=== PATIENT | female | born 1940 | race Caucasian/White ===

== ENCOUNTER 2016-11-01 05:53 | Day surgery (SDC) | payer OTHER ==
[~2016-11-01] VITALS: Ht 160 cm; Wt 60.0 kg
[~2016-11-01 05:53] MED LIST: ASPI-94 PO; DYAZ37.52 PO; LORTA5 PO; QUIN10TA15 PO; SIMV20 PO
[2016-11-01 06:41] VITALS: BP 145/80; PULSE 68; RESP 20; TEMP 97.8; O2SAT 92
[2016-11-01] MEDS ORDERED: ASPI1TAB69 PO (06:56)
[2016-11-01] MEDS ORDERED: TRIA37.5 PO (06:56)
[2016-11-01] MEDS ORDERED: QUIN1TAB11 PO (06:56)
[2016-11-01] MEDS ORDERED: VANCOMYCIN 1000 MG/NS 250 ML - implanted port/tunneled catheter IV SCH ×2 (07:00)
[2016-11-01] MEDS ORDERED: SODIUM CHLORIDE 0.9% 1000 ML IV SCH (07:00)
[2016-11-01 07:19] LABS: APTT (PATIENT) 26.2 SEC (24.3-30.1); PROTHROMBIN TIME - PATIENT 10.6 SEC (9.8-11.6)
[2016-11-01] MEDS ORDERED: fentaNYL CITRATE 250 MCG/5 ML AMP ONE (08:02)
[2016-11-01] MEDS ORDERED: MIDAZOLAM HCL 5 MG/5 ML VIAL ONE (08:02)
[2016-11-01] MEDS ORDERED: LIDOCAINE 1%/EPINEPHrine 1:100,000 SOLN 20 ML VIAL ONE (08:13)
--- NOTE | 2016-11-01 08:42 | PD.RAD ---
Post Procedure Progress Note Pre Procedure Diagnosis: (1) Cancer of sigmoid colon Post Procedure Diagnosis: (1) Cancer of sigmoid colon Procedure Date: Nov 01, 2016 Supervising Radiologist: Zhang Lam JR Proceduralist/Assist: RT Amari(R)() Anesthesia: Conscious Sedation Plan of Activity Patient to Unit: ROPU Patient Condition: Good See PACS Report for procedural detail/treatment Central Venous Access Device Procedure 1 Right Internal Jugular Infusaport Removal single lumen Upper Sorbian: 8 Findings: No signs of infection. Port removed without difficulty Plan F/U with IR or a physician in 10-14 days for a site check Jr. Genaro,Zhang Gamez MD Nov 01, 2016 08:42
[2016-11-01 08:45] VITALS: BP_SYST 108; BP_SYST 94; BP_DIAS 56; BP_DIAS 63; PULSE 69; PULSE 72; RESP 18; RESP 20; TEMP 97.5; O2SAT 91; O2SAT 97
[2016-11-01 09:00] VITALS: BP 108/63; PULSE 72; RESP 18; O2SAT 97
[2016-11-01 09:30] VITALS: BP 95/60; PULSE 66; RESP 16; O2SAT 92
[2016-11-01 10:00] VITALS: BP 93/50; PULSE 60; RESP 16; O2SAT 96
[2016-11-01 10:30] VITALS: BP 106/54; PULSE 63; RESP 16; O2SAT 98
--- NOTE | 2016-11-01 12:44 | RADRPT ---
EXAM DATE/TIME: 11/01/2016 07:34 [facility] COMPARISON: No previous studies available for comparison. INDICATIONS : Patient with a history of colon cancer, port no longer needed. MEDICAL HISTORY : Colon cancer HTN High cholesterol Scoliosis Arthritis SURGICAL HISTORY : Colectomy Colonoscopy Rt. hip surgery Partial hysterectomy Tubal ligation Tonsillectomy ENCOUNTER: Subsequent ACUITY: 7-11 months PAIN SCORE: 0/10 SEDATION TIME: 30 minutes 1.) 2 mg midazolam (Versed) IV 2.) 100 mcg fentanyl (Sublimaze) IV Prophylactic antibiotics were administered with appropriate pre-procedure timing. Vancomycin within 2 hrs of procedure, Ancef (or alternative) within 1 hr of procedure. PROCEDURE : 1. Removal of [id number]. 2. Conscious sedation with continuous EKG and oximetry monitoring. The risk, benefits and potential complications of Iaqlty-u-[id number] removal were discussed. Written conse nt was obtained. The patient was placed supine. The chest wall was prepped in sterile fashion. Full sterile techniqu e was used, including cap, mask, sterile gloves and gown, and a large sterile sheet. Hand hygiene an d 2% chlorhexidine and/or Betadine/alcohol prep was utilized per protocol for cutaneous antisepsis. The skin and subcutaneous tissues were infiltrated with local anesthetic solution. A small incision w as made, the subcutaneous pocket was opened. The port was dissected from the subcutaneous tissues and easily removed in one piece. The pocket incision was closed with subcuticular Vicryl suture. Steri -Strips were applied. Conscious sedation was performed with the prescribed dosages and duration as above. The patient tole rated the procedure well and there were no complications. EKG and oximetry remained stable throughou t the procedure. The patient was sent to post anesthesia recovery in stable condition. CONCLUSION: Uncomplicated right chest port removal as above. Zhang Lam Jr., MD on November 01, 2016 at 12:42 Board Certified Radiologist. This report was verified electronically.
== END 2016-11-01 10:45 | disposition home or self-care (01) ==
LOC: HROP 05:53 → HRIP 05:54 → HROP 10:45
PROVIDERS: ATTEND Internal Medicine Hematology & Oncology
DX: C18.7 Malignant neoplasm of sigmoid colon (principal); Z79.82 Long term (current) use of aspirin
CPT/HCPCS: 36590; 85610; 85730; 99152; 99153; J2250; J3010; J3370; J7030; J7050

== ENCOUNTER 2017-12-05 06:04 | Day surgery (SDC) | payer OTHER ==
[~2017-12-05] VITALS: Ht 160 cm; Wt 63.6 kg
[2017-12-05] VITALS (10 sets, daily range): BP systolic 92–129; BP diastolic 50–82; PULSE 61–75; RESP 16–20; TEMP 97.4–97.6; O2SAT 92–99
[~2017-12-05 06:04] MED LIST changes: -ASPI-94 PO; +ASPI1TAB69 PO; -DYAZ37.52 PO; -LORTA5 PO; -QUIN10TA15 PO; +QUIN1TAB11 PO; -SIMV20 PO; +TRIA37.5 PO
[2017-12-05] MEDS ORDERED: ACCU10TA2 PO (06:52)
[2017-12-05] MEDS ORDERED: SIMV20TA PO (06:52)
[2017-12-05] MEDS ORDERED: SODIUM CHLOR 0.9% 1000 ML IV SCH (07:00)
[2017-12-05] MEDS ORDERED: LIDOCAINE HCL 1% 20 ML VIAL ONE (07:43)
[2017-12-05] MEDS ORDERED: fentaNYL CITRATE 250 MCG/5 ML AMP ONE (07:55)
[2017-12-05] MEDS ORDERED: MIDAZOLAM HCL 2 MG/2 ML VIAL ONE (07:55)
--- NOTE | 2017-12-05 09:03 | RADRPT ---
EXAM DATE/TIME: 12/05/2017 08:12 [facility] COMPARISON: No previous studies available for comparison. INDICATIONS : Right lung mass. SEDATION TIME: 30 minutes BIOPSY SITE: Right MEDICATION(S): 1.) 1.5 mg midazolam (Versed) IV 2.) 75 mcg fentanyl (Sublimaze) IV DEVICE(S): 1.) 20 gauge Temno core biopsy needle MEDICAL HISTORY : Carcinoma, colon. Hypertension. SURGICAL HISTORY : Hysterectomy. ENCOUNTER: Initial ACUITY: 1 day PAIN SCORE: 0/10 LOCATION: Right chest A total of two core specimen(s) were obtained and sent to the laboratory for pathologic evaluation. PROCEDURE: 1. CT guided lung biopsy. 2. Conscious sedation with continuous EKG and oximetry monitoring. 3. EKG and oximetry remained stable throughout the procedure. Prior to the procedure informed consent was obtained. Any appropriate prior imaging studies were rev iewed. Using automated exposure control and adjustment of the mA and/or kV according to patient size, radiation dose was kept as low as reasonably achievable to obtain optimal diagnostic quality images. DICOM format image data is available electronically for review and comparison. The site was prepped in a sterile fashion. Full sterile technique was used, including cap, mask, ze rile gloves and gown and a large sterile sheet. Hand hygiene and 2% chlorhexidine and/or betadine/al cohol prep was utilized per protocol for cutaneous antisepsis. The skin and subcutaneous tissues wer e infiltrated with local anesthetic solution. Under CT guidance 18 gauge blunt was placed down to the lesion and 2 cores obtained. 2 slides were s ubmitted. Followup scans reveals moderate hemorrhage about the lesion without pneumothorax.. Conscious sedation was performed with the prescribed dosages and duration as above in the presence of an independent trained radiology nurse to assist in the monitoring of the patient. EKG and oximetry remained stable throughout the procedure. The patient tolerated the procedure well and there were no complications. The patient was sent to Radiology Outpatient Unit in stable condition. CONCLUSION: Uncomplicated CT guided biopsy right lung nodule. Pathology is pending. There is no pneumothorax. Lázaro Wu MD FACR on December 05, 2017 at 8:59 Board Certified Radiologist. This report was verified electronically.
--- NOTE | 2017-12-05 11:13 | RADRPT ---
EXAM DATE/TIME: 12/05/2017 10:22 [facility] COMPARISON: No previous studies available for comparison. INDICATIONS : Post right lung biopsy. MEDICAL HISTORY : Carcinoma, colon. Hypertension SURGICAL HISTORY : Hysterectomy. ENCOUNTER: Subsequent ACUITY: 1 day PAIN SCORE: 0/10 LOCATION: Bilateral chest FINDINGS: A single frontal expiratory view of the chest was performed. The lungs are symmetrically aerated and clear. No evidence of pneumothorax. Mediastinal structures are in the midline. Minimal parenchymal hemorrhage is present. Marked scoliosis is evident. CONCLUSION: No pneumothorax. Lázaro Wu MD FACR on December 05, 2017 at 11:12 Board Certified Radiologist. This report was verified electronically.
== END 2017-12-05 12:50 | disposition home or self-care (01) ==
LOC: HRAD 06:04 → HRIP 06:11 → HRAD 12:50
PROVIDERS: ATTEND Internal Medicine Hematology & Oncology
DX: C18.7 Malignant neoplasm of sigmoid colon (principal); I10 Essential (primary) hypertension; Z85.038 Personal history of other malignant neoplasm of large intestine
CPT/HCPCS: 32405; 71045; 77012; 88305; 88333; J2250; J3010